=== PATIENT | male | born 1990 | race Caucasian/White ===

== ENCOUNTER 2016-10-20 11:00 | Observation (INO) | payer SELFPAY ==
[2016-10-20] MEDS ORDERED: Sodium Chloride 0.9% 1,000 ML IV ONE (11:02)
[2016-10-20] MEDS ORDERED: Sodium Chloride 0.9% 10 ML Syringe FLUSH PRN (11:02)
[2016-10-20] MEDS ORDERED: Sodium Chloride 0.9% 2.5 ML Syringe FLUSH PRN (11:02)
[2016-10-20] MEDS ORDERED: ceFAZolin 1 GM in Premix Bag 1 BAG IV ONE ×2 (11:07→13:19)
[2016-10-20] MEDS ORDERED: Diphtheria,Pertussis(Acell),Tetanus Vaccine 0.5 ML Syringe IM ONE (11:09)
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
[2016-10-20 11:52] LABS: CHLORIDE,CL 105 mmol/L (98-110); SODIUM,NA 138 mmol/L (136-146)
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
[2016-10-20] MEDS ORDERED: Ondansetron 4 MG/2 ML SDV IVPUSH PRN (12:19)
[2016-10-20] MEDS ORDERED: Acetaminophen 325 MG Tab PO PRN (12:19)
[2016-10-20] MEDS ORDERED: ceFAZolin 2 GM in Premix Bag 1 BAG IV SCH (12:30)
[2016-10-20] MEDS: Lactated Ringers 1,000 ML IV SCH (12:46)
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
[2016-10-20] MEDS ORDERED: Ondansetron 4 MG/2 ML SDV ONE (13:03)
[2016-10-20] MEDS ORDERED: Succinylcholine/Normal Saline 200 MG/10 ML Syringe ONE (13:03)
[2016-10-20] MEDS ORDERED: Propofol 200 MG/20 ML SDV ONE (13:04)
[2016-10-20] MEDS ORDERED: Midazolam 1 MG/ML 2 ML SDV ONE (13:04)
[2016-10-20] MEDS ORDERED: fentaNYL 250 MCG/5 ML SDV ONE (13:04)
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
[2016-10-20] MEDS ORDERED: Bupivacaine 0.25% 10 ML SDV ONE (14:02)
[2016-10-20] MEDS ORDERED: Bupivacaine 0.25%/EPINEPHrine 1:200,000 10 ML SDV ONE (14:03)
[2016-10-20] MEDS ORDERED: Lidocaine 1% 50 ML MDV ONE (14:03)
[2016-10-20] MEDS ORDERED: HYDROmorphone 2 MG/ML Syringe ONE (14:25)
[2016-10-20] MEDS ORDERED: Ketorolac 30 MG/ML SDV ONE (14:45)
[2016-10-20] MEDS ORDERED: Dexamethasone 4 MG/ML 5 ML MDV ONE (14:45)
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
--- NOTE | 2016-10-20 15:59 | PCM.POSTAN ---
POST ANESTHESIA ASSESSMENT - MENTAL STATUS Mental Status: alert, oriented - RESPIRATORY Respiratory Status: respiratory rate WNL, airway patent, O2 saturation stable - CARDIOVASCULAR CV Status: pulse rate WNL, blood pressure stable - GASTROINTESTINAL GI Status: no symptoms - PAIN Pain Score: 0 - POST OP HYDRATION Hydration Status: adequate & stable
--- NOTE | 2016-10-20 16:59 | PCM48HPAN ---
Post Anesthesia Note - EVALUATION WITHIN 48HRS OF ANESTHETIC Vital Signs in Normal Range: Yes Patient Participated in Evaluation: Yes Respiratory Function Stable: Yes Airway Patent: Yes Cardiovascular Function Stable: Yes Hydration Status Stable: Yes Pain Control Satisfactory: Yes Nausea and Vomiting Control Satisfactory: Yes Mental Status Recovered: Yes
[2016-10-20] MEDS: Acetaminophen/oxyCODONE 325-5 MG Tab PO PRN (17:15)
[2016-10-20] MEDS: ceFAZolin 1 GM in Premix Bag 1 BAG IV SCH (18:08)
[2016-10-20] MEDS ORDERED: ceFAZolin 1 GM in Premix Bag 1 BAG IV SCH (19:00)
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
[2016-10-21] MEDS: Lactated Ringers 1,000 ML IV SCH (00:56)
[2016-10-21] MEDS: ceFAZolin 1 GM in Premix Bag 1 BAG IV SCH ×2 (02:19→11:11)
[2016-10-21 05:45] LABS: CHLORIDE,CL 106 mmol/L (98-110); SODIUM,NA 139 mmol/L (136-146)
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
[2016-10-21] MEDS ORDERED: Sodium Chloride 0.9% 2.5 ML Syringe FLUSH PRN (09:58)
[2016-10-21] MEDS ORDERED: Sodium Chloride 0.9% 10 ML Syringe FLUSH PRN (09:58)
[2016-10-21] MEDS: Acetaminophen/oxyCODONE 325-5 MG Tab PO PRN (11:10)
--- NOTE | 2016-10-21 11:20 | PCM.SN ---
- Free Text/Narrative Note: Patient seen and examined at 1000. He states that his pain has been well- controlled. He has not yet been up with physical therapy. He denies distal paralysis or paresthesias. Exam shows his dressing to be intact. He has a mild joint effusion. Calf and thigh compartments are soft. AT/EHL/gastroc 08/07. Sensation grossly intact. DP/ PT pulses 2+. 1. Up with physical therapy today, weight-bear as tolerated right lower extremity, range of motion as tolerated at the knee 2. Okay for discharge from orthopedic standpoint 3. Advised to contact us if he has questions or concerns prior to his follow-up appointment.
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
[2016-10-21 13:47] VITALS: BP 128/69
== END 2016-10-21 16:48 | disposition home or self-care (01) ==
LOC: MW.ED 11:00 → MW.MS 12:19
PROVIDERS: ADMIT Surgery; ATTEND Surgery
PROC: 0KCQ0ZZ Extirpation of Matter from Right Upper Leg Muscle, Open Approach (ICD-10-PCS; principal; 2016-10-20)
PROC: 0QBB0ZZ Excision of Right Lower Femur, Open Approach (ICD-10-PCS; 2016-10-20)
DX: S71.141A Puncture wound with foreign body, right thigh, initial encounter (principal); F15.10 Other stimulant abuse, uncomplicated; F17.210 Nicotine dependence, cigarettes, uncomplicated; W34.00XA Accidental discharge from unspecified firearms or gun, initial encounter
CPT/HCPCS: 20103; 36415; 73590; 80048; 80053; 80305; 82550; 85025; 85027; 86850; 86900; 86901; 90471; 90715; 93922; 96361; 96365; 97110; 97116; 97161; 99285; A9270; G0378; G0480; J0690; J1100; J1170; J1885; J2250; J2405; J3010; J7040; J7120; 00400; 88300; G0390; J2704